=== PATIENT | male | born 1995 | race Two or more races ===

== ENCOUNTER 2019-05-13 21:54 | Emergency (ER) | payer SELFPAY ==
[~2019-05-13] VITALS: Ht 165.1 cm; Wt 70.5 kg
[2019-05-13 22:20] VITALS: BP 125/75
== END 2019-05-14 03:00 | disposition left against medical advice (07) ==
LOC: EMS 22:04
DX: M79.89 Other specified soft tissue disorders (principal); Z53.21 Procedure and treatment not carried out due to patient leaving prior to being seen by health care provider